=== PATIENT | female | born 1990 | race Caucasian/White ===

== ENCOUNTER 2024-09-26 21:40 | Emergency (ER) | payer OTHER, SELFPAY ==
--- NOTE | 2024-09-26 21:42 | ECG_ITS ---
APPROVED REPORT Exam: Resting ECG HR:86 bpm ECG Measurements Heart Rate 86 AXES SD 158 P 65 QRSd 92 QRS 92 QT 348 T 61 QTc 392 Conclusion Sinus rhythm Electronically signed by : KAT MAS, 09/26/2024 22:35:47
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
[2024-09-26 21:49] VITALS: BP 128/72; PULSE 78; RESP 15; TEMP 36.7; O2SAT 99
[2024-09-26 22:08] VITALS: BMI 34.2
[2024-09-26] MEDS: KETOROLAC 30MG/ML VIAL 15 MG IV (22:09)
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
[2024-09-26 23:13] VITALS: BP 126/92; PULSE 86; RESP 16; TEMP 36.8; O2SAT 98
== END 2024-09-26 23:24 | disposition home or self-care (01) ==
PROVIDERS: Emergency Provider Emergency Medicine
DX: M25.561 Pain in right knee (principal); M25.562 Pain in left knee; V89.2XXA Person injured in unspecified motor-vehicle accident, traffic, initial encounter; Y93.89 Activity, other specified; Y92.410 Unspecified street and highway as the place of occurrence of the external cause
CPT/HCPCS: 73562; 93005; 96374; 99291; J1885